=== PATIENT | female | born 1960 | race Caucasian/White ===

== ENCOUNTER → 2020-10-06 | Outpatient (CLI) | payer OTHER ==
[~2020-10-06] MED LIST: CARISOPRODOL 3350 MG PO; DARVOCET-N 1001 EACH PO; FIORICET 50-321 EACH PO; LEVAQUIN 500 M500 MG PO; LEXAPRO 10 MG T10 MG PO; SYNTHROID75 MCG PO; TRAMADOL 50 MG50 MG PO; VALIUM5 MG PO
== END ==
LOC: CAT 16:34
PROVIDERS: ATTEND Neuromusculoskeletal Medicine & OMM
DX: Z13.6 Encounter for screening for cardiovascular disorders (principal); I25.10 Atherosclerotic heart disease of native coronary artery without angina pectoris; E78.00 Pure hypercholesterolemia, unspecified